=== PATIENT | female | born 1955 | race Caucasian/White ===

== ENCOUNTER 2020-04-24 15:51 | Inpatient (IN) | payer OTHER ==
[~2020-04-24] VITALS: Ht 154.9 cm; Wt 84.8 kg
[~2020-04-24 15:51] MED LIST: TESSALON PERLE100 MG PO; VIBRAMYCIN100 MG PO
[2020-04-24 18:50] LABS: HEMOGLOBIN 12.4 gm/dl (12.3-15.3); RED BLOOD COUNT 4.14 M/UL (4.00-5.10); WHITE BLOOD COUNT 8.8 K/UL (4.5-11.0)
[2020-04-24 19:10] LABS: BUN/CREATININE RATIO 18 (0-10)
[2020-04-25 07:49] LABS: HEMOGLOBIN 10.6 gm/dl (12.3-15.3); RED BLOOD COUNT 3.77 M/UL (4.00-5.10)
[2020-04-25 07:52] LABS: WHITE BLOOD COUNT 5.6 K/UL (4.5-11.0)
[2020-04-25] MEDS ORDERED: VITAMIN D21250 MCG PO (18:20)
[2020-04-25] MEDS ORDERED: LISINOPRIL30 MG PO (18:21)
[2020-04-25] MEDS ORDERED: FENOFIBRATE145 MG PO (18:22)
[2020-04-25] MEDS ORDERED: GLUCOPHAGE 500500 MG PO (18:23)
[2020-04-25] MEDS ORDERED: LEVOTHYROXINE75 MC1 PO (18:24)
[2020-04-25] MEDS ORDERED: HYDROCHLOROTHIA25 MG PO (18:25)
[2020-04-25] MEDS ORDERED: NEXIUM20 MG PO (18:42)
[2020-04-27 05:53] LABS: HEMOGLOBIN 10.9 gm/dl (12.3-15.3); RED BLOOD COUNT 3.75 M/UL (4.00-5.10); WHITE BLOOD COUNT 10.8 K/UL (4.5-11.0)
[2020-04-29 06:43] LABS: HEMOGLOBIN 11.3 gm/dl (12.3-15.3); RED BLOOD COUNT 3.84 M/UL (4.00-5.10); WHITE BLOOD COUNT 12.6 K/UL (4.5-11.0)
[2020-04-30] MEDS ORDERED: DIABETA 2.5 MG2.5 MG PO (12:06)
[2020-04-30] MEDS ORDERED: FERROUS SULFAT325 M2 PO (12:06)
[2020-04-30] MEDS ORDERED: DEXAMETHASONE1 MG PO (12:10)
== END 2020-04-30 17:07 | disposition home or self-care (01) | DRG 177 ==
LOC: ER1 15:51 → ZEROF 19:06 → MED SURG 4 19:06
PROVIDERS: Emergency Medicine; Internal Medicine; ADMIT Internal Medicine
PROC: 8E0ZXY6 Isolation (ICD-10-PCS; principal; 2020-04-24)
PROC: XW033E5 Introduction of Remdesivir Anti-infective into Peripheral Vein, Percutaneous Approach, New Technology Group 5 (ICD-10-PCS; 2020-04-24)
DX: U07.1 COVID-19 (principal); J12.82 Pneumonia due to coronavirus disease 2019; J96.01 Acute respiratory failure with hypoxia; N17.9 Acute kidney failure, unspecified; E87.1 Hypo-osmolality and hyponatremia; E11.65 Type 2 diabetes mellitus with hyperglycemia; T38.0X5A Adverse effect of glucocorticoids and synthetic analogues, initial encounter; I10 Essential (primary) hypertension; E78.5 Hyperlipidemia, unspecified; E66.9 Obesity, unspecified; E03.9 Hypothyroidism, unspecified; R00.0 Tachycardia, unspecified; Z79.899 Other long term (current) drug therapy; J20.8 Acute bronchitis due to other specified organisms; Z68.35 Body mass index [BMI] 35.0-35.9, adult
CPT/HCPCS: 36415; 36600; 71045; 80048; 80053; 82550; 82553; 82728; 82803; 82962; 83036; 83540; 83550; 83605; 83735; 83874; 83880; 84484; 85025; 85379; 85730; 87040; 93005; 94760; 96365; 96366; 96367; 96372; 96375; 96376; 97116-GP-CQ; 97161; 99285; J0696; J1100; J1644; J1650; J7030; U0002

== ENCOUNTER → 2020-06-23 | Outpatient (CLI) | payer OTHER ==
[~2020-06-23] MED LIST changes: +DEXAMETHASONE1 MG PO; +DIABETA 2.5 MG2.5 MG PO; +FENOFIBRATE145 MG PO; +FERROUS SULFAT325 M2 PO; +GLUCOPHAGE 500500 MG PO; +HYDROCHLOROTHIA25 MG PO; +LEVOTHYROXINE75 MC1 PO; +LISINOPRIL30 MG PO; +NEXIUM20 MG PO; +VITAMIN D21250 MCG PO
== END ==
LOC: HEART 5 10:13
DX: B94.8 Sequelae of other specified infectious and parasitic diseases (principal); R06.02 Shortness of breath; R93.1 Abnormal findings on diagnostic imaging of heart and coronary circulation; I51.7 Cardiomegaly
CPT/HCPCS: 93306

== ENCOUNTER → 2020-08-10 | Outpatient (CLI) | payer OTHER | LOC: EXRD 13:49 | DX: N18.30 Chronic kidney disease, stage 3 unspecified (principal); N28.1 Cyst of kidney, acquired; K80.20 Calculus of gallbladder without cholecystitis without obstruction; K76.0 Fatty (change of) liver, not elsewhere classified | CPT/HCPCS: 76775 ==

== ENCOUNTER → 2020-08-26 | Outpatient (CLI) | payer OTHER | LOC: EXRD 10:00 | DX: R11.0 Nausea (principal); K21.9 Gastro-esophageal reflux disease without esophagitis; K80.20 Calculus of gallbladder without cholecystitis without obstruction; K76.0 Fatty (change of) liver, not elsewhere classified | CPT/HCPCS: 76705 ==

== ENCOUNTER → 2021-03-01 | Outpatient (CLI) | payer MEDICARE, OTHER | LOC: US 13:07 | DX: N28.1 Cyst of kidney, acquired (principal) ==

== ENCOUNTER 2021-06-18 13:09 | Emergency (ER) | payer MEDICARE, OTHER ==
[2021-06-18 14:05] LABS: HEMOGLOBIN 12.8 gm/dl (12.3-15.3); RED BLOOD COUNT 4.49 M/UL (4.00-5.10); WHITE BLOOD COUNT 10.5 K/UL (4.5-11.0)
[2021-06-18] MEDS ORDERED: BENZONATATE100 MG PO ×2 (16:22→16:24)
== END 2021-06-18 16:30 | disposition home or self-care (01) ==
LOC: ER1 13:09
PROVIDERS: Nurse Practitioner
DX: J18.9 Pneumonia, unspecified organism (principal); E11.9 Type 2 diabetes mellitus without complications; I10 Essential (primary) hypertension; Z20.822 Contact with and (suspected) exposure to COVID-19
CPT/HCPCS: 0240U; 71045; 80053; 81001; 85025; 93005; 99285

== ENCOUNTER → 2021-09-28 | Outpatient (CLI) | payer MEDICARE, OTHER ==
[~2021-09-28] MED LIST changes: +BENZONATATE100 MG PO
== END ==
LOC: HEART 5 09:03
DX: R05.3 Chronic cough (principal); R06.02 Shortness of breath
CPT/HCPCS: 94060; 94729; 95012

== ENCOUNTER → 2021-10-06 | Outpatient (CLI) | payer MEDICARE, OTHER | LOC: KOH-I 09:10 | DX: R05.3 Chronic cough (principal); J98.11 Atelectasis | CPT/HCPCS: 71250 ==